=== PATIENT | female | born 1985 | race Caucasian/White ===

== ENCOUNTER 2025-06-26 08:18 | Outpatient (CLI) | payer OTHER ==
[2025-06-26 09:18] LABS: BASO % 0.3 % (0.1-1.2); EOS # 0.30 (0.04-0.54); EOS % 4.5 % (0.7-7.0); LYMPH # 2.55 (1.18-3.74); LYMPH % 38.2 % (19.3-53.1); MEAN PLATELET VOLUME 10.60 fl (9.4-12.4); MONO # 0.48 (0.24-0.82); MONO % 7.2 % (4.7-12.5); NEUT # 3.31 (1.56-6.13); NEUT % 49.7 % (34.0-71.1); RED CELL DISTRIBUTION WIDTH 14.7 % (11.6-14.4)
[2025-06-26 09:33] LABS: URINE APPEARANCE Clear; URINE BILIRRUBIN Negative (NEGATIVE); URINE BLOOD Negative; URINE COLOR Yellow; URINE GLUCOSE Negative (NEGATIVE); URINE KETONE Trace (NEGATIVE); URINE LEUKOCYTE Negative; URINE NITRATE Negative; URINE PROTEIN Trace (NEGATIVE); URINE UROBILINOGEN 0.2 E.U./dl
[2025-06-26 09:34] LABS: URINE BACTERIA 1120.7 uL (0.0-1933); URINE EPITHELIAL CELLS 28.4 uL (0.0-38.8); URINE RBC 11.1 uL (0.0-20.8); URINE WBC 10.7 uL (0.0-23.2)
[2025-06-26 09:35] LABS: URINE CAST 0.00 uL (0.0-1.40)
[2025-06-26 10:07] LABS: ob NEGATIVE (NEGATIVE)
[2025-06-26 10:26] LABS: ALT/SGPT 32.0 U/L (12-78); AST/SGOT 21.0 U/L (15-37); BILIRUBIN TOTAL 0.41 mg/dL (0.3-1.2); BUN CREA RATIO 19.0 (7.0-25.0); CHOL HDL RATIO 6.0 (0-5.0); CREATININE SERUM 0.63 mg/dL (0.55-1.02); GFR 103.63; GLOBULINA 4.2 G/DL (2.4-3.5); GLUCOSE FASTING 112.0 mg/dL (65-100); HDL 36.0 mg/dl (40-60); LDL 96.0 mg/dl (0-130); OSMOLALITY SERUM 278.0 MOSM/KG (275-295); T3 UPTAKE 32.0 % (30-39); T4 TOTAL 11.13 UG/DL (4.8-13.9); TSH 4.8 uIU/mL (0.358-3.74); VLDL 84.0 (0-39)
[2025-06-26 15:42] LABS: T3 TOTAL 1.77 ng/ml (0.846-2.02); VITAMIN D3 25 HYDROXY 24.19 ng/ml (30-120)
[2025-06-27 09:08] LABS: LEUTEINIZING HORMONE 26.2 mIU/mL (.)
== END 2025-06-26 08:26 | disposition home or self-care (01) ==
LOC: LAB 08:18
PROVIDERS: ATTEND Internal Medicine
DX: I10 Essential (primary) hypertension (principal); Z01.810 Encounter for preprocedural cardiovascular examination; E03.9 Hypothyroidism, unspecified; E55.9 Vitamin D deficiency, unspecified; E78.9 Disorder of lipoprotein metabolism, unspecified; E11.51 Type 2 diabetes mellitus with diabetic peripheral angiopathy without gangrene; G62.9 Polyneuropathy, unspecified; Z12.31 Encounter for screening mammogram for malignant neoplasm of breast

== ENCOUNTER 2025-06-26 09:38 | Outpatient (CLI) | payer OTHER | END 2025-06-26 09:45 | disposition home or self-care (01) | LOC: MAMO-SONO 09:38 | PROVIDERS: ATTEND Internal Medicine | DX: Z12.31 Encounter for screening mammogram for malignant neoplasm of breast (principal); I10 Essential (primary) hypertension; Z01.810 Encounter for preprocedural cardiovascular examination; E03.9 Hypothyroidism, unspecified; E55.9 Vitamin D deficiency, unspecified; E78.9 Disorder of lipoprotein metabolism, unspecified; E11.51 Type 2 diabetes mellitus with diabetic peripheral angiopathy without gangrene; G62.9 Polyneuropathy, unspecified ==